=== PATIENT | female | born 1945 | race Caucasian/White ===

== ENCOUNTER 2019-03-19 20:23 | Emergency (ER) | payer MEDICARE ==
[2019-03-19] MEDS ORDERED: 0.9 % SODIUM CHLORIDE 1000ML 1,000 ML IV SCH (20:30)
--- NOTE | 2019-03-19 20:32 | Emergency Department Record ---
History of Present Illness - General Chief Complaint: Abdominal Pain Stated Complaint: BACK/ABD PAIN Time Seen by Provider: 03/19/19 20:24 Source: Patient Mode of Arrival: EMS Limitations: No limitations - History of Present Illness Initial Comments: 73 yo female presents to ED for evaluation of LLQ pain symptoms, fever, and chills that began this evening. Patient denies urinary symptoms, denies change in stools. Patient denies productive cough symptoms, denies rash symptoms, headache, or stiff neck symptoms. Patient denies history of diverticulitis previously, patient denies nausea/vomiting symptoms. MD Complaint: Abdominal pain Onset/Timin -: Hour(s) Location: LLQ Radiation: L flank Severity: Moderate Quality: Aching Consistency: Constant Improves With: Nothing Worsens With: Nothing Associated Symptoms: Chills - Related Data Patient : No Hx Age of Menopause: 39 Previous Rx's Medication Instructions Recorded Cephalexin [Keflex] 500 mg PO QID #28 cap 03/19/19 Allergies Allergy/AdvReac Type Severity Reaction Status Date / Time Penicillins AdvReac SWELLING Verified 03/19/19 20:38 (GENERAL) bee stings Allergy Intermediate extreme Uncoded 09/20/15 14:09 swelling Review of Systems Constitutional: Denies: Chills, Fever, Malaise Eyes: Denies: Eye discharge, Eye pain ENT: Denies: Congestion, Ear pain, Epistaxis Respiratory: Denies: Cough, Dyspnea Cardiovascular: Denies: Chest pain, Dyspnea on exertion Endocrine: Denies: Fatigue, Heat or cold intolerance Gastrointestinal: Reports: Abdominal pain. Denies: Constipation, Nausea, Vomiting Genitourinary: Denies: Incontinence, Retention Musculoskeletal: Denies: Arthralgia, Back pain Skin: Denies: Bruising, Change in color Neurological: Denies: Abnormal gait, Confusion, Headache, Seizure Psychiatric: Denies: Anxiety Hematological/Lymphatic: Denies: Anemia, Blood Clots Past Medical History - SOCIAL HISTORY Smoking Status: Never smoker Alcohol Use: Occasional Drug Use: None - RESPIRATORY Hx Respiratory Disorders: No - CARDIOVASCULAR Hx Cardio Disorders: Yes Comment:: hypercholeteremia - NEURO Hx Neuro Disorders: Yes Comment:: memory, RLS - GI Hx GI Disorders: Yes Hx Reflux: Yes (occasionally) - Hx Genitourinary Disorders: Yes Hx UTI: Yes (many years ago) - ENDOCRINE Hx Endocrine Disorders: No - MUSCULOSKELETAL Hx Musculoskeletal Disorders: No - PSYCH Hx Psych Problems: No - HEMATOLOGY/ONCOLOGY Hx Hematology/Oncology Disorders: No Family Medical History Any Significant Family History?: Yes Hx Diabetes: Father Hx Heart Disease: Mother *Heart Comment: CHF Physical Exam - General General Appearance: Alert, Oriented x3, Cooperative Limitations: No limitations - Head Head exam: Atraumatic, Normocephalic, Normal inspection Head exam detail: negative: Abrasion, Contusion, John's sign, General tenderness, Hematoma, Laceration - Eye Eye exam: Normal appearance. negative: Conjunctival injection, Periorbital swelling, Periorbital tenderness, Scleral icterus - ENT Ear exam: negative: Auricular hematoma, Auricular trauma Nasal Exam: negative: Active bleeding, Discharge, Dried blood, Foreign body Mouth exam: negative: Drooling, Laceration, Muffled voice, Tongue elevation - Neck Neck exam: Normal inspection. negative: Meningismus, Tenderness - Respiratory Respiratory exam: Normal lung sounds bilaterally. negative: Rales, Respiratory distress, Rhonchi, Stridor - Cardiovascular Cardiovascular Exam: Regular rate, Normal rhythm, Normal heart sounds - GI/Abdominal GI/Abdominal exam: Soft, Tenderness (TTP LLQ on exami nation, no rebound/guarding symptoms are present on examination.). negative: Rebound, Rigid - Rectal Rectal exam: Deferred - exam: Deferred - Extremities Extremities exam: Normal inspection. negative: Pedal edema, Tenderness - Back Back exam: Denies: CVA tenderness (R), CVA tenderness (L) - Neurological Neurological exam: Alert, Normal gait, Oriented X3 - Psychiatric Psychiatric exam: Normal affect, Normal mood - Skin Skin exam: Normal color. negative: Abrasion Type of lesion: negative: abrasion Course Vital Signs 03/19/19 20:23 Temperature 98.8 F Pulse Rate [ 88 Pulse Ox Probe] Respiratory 24 Rate Blood Pressure 170/95 [Left Arm] Pulse Ox 98 - Reevaluation(s) Reevaluation #1: 03/19/19 21:01 Laboratory studies were reviewed and appear grossly unremarkable for an acute process except for the following: WBC 10.6 with 81% Neutrophils, 7% Bands Reevaluation #2: 03/19/19 21:28 Patient is back from CT imaging, results are pending at this time. Reevaluation #3: 03/19/19 21:57 CT Abdomen and Pelvis: 4 mm proximal ureteral calculus with mild left hydronephrosis UA was reviewed: 10-15 RBCs 1+ Bacteria Rocephin was ordered to infuse at this time. I spoke with the patient at length regarding transfer for likely infected ureteral calculus (perinephric stranding, Bandemia, rigors on examination), patient reports that she has to go home to care for her 89 yo following spinal surgery. I asked if the patient has anyone that can care for her SO as transfer for urological consultation is indicated based on the patient's UA, clinical examination, and CT findings. Patient reports that there is no-one available to care for her SO. I also asked if her SO could be brought to the ED via ambulance and admitted for care so that the patient can be transferred for urological consultation and admission, patient again declined. Following discussion with the patient regarding transfer for urologic consultation, patient reports that she wants to leave AMA following infusion of antibiotics. Risks of , permanent impairment from sepsis, as well as worsening of her current condition were discussed as well as the benefit of transfer for further evaluation of her presenting symptoms. Patient verbalizes understanding of all risks and benefits discussed, desires to leave AMA despite these risks. Based on my examination, the patient is alert, oriented, and answers all questions appropriately. Patient appears to have the capacity to make rational decisions based on my examination. Naveen alexis was present for the duration of our discussion as well. Patient was encouraged to return to the ED immediately if they change their mind about treatment and want to be re- evaluated. Medical Decision Making - Lab Data Result diagrams: 03/19/19 20:30 03/19/19 20:30 Disposition Disposition: Discharge Clinical Impression: Ureteral calculus, left, Pyelonephritis Disposition: Against Medical Advice Condition: (2) Stable Instructions: Kidney Infection (ED) Additional Instructions: Return to ED if your symptoms worsen or if you have any concerns. Keflex as directed. Follow-up with Dr. Juarez in 1-3 days as directed. Prescriptions: Cephalexin [Keflex] 500 mg PO QID #28 cap Forms: Patient Portal Access Time of Disposition: 22:23 Quality - Quality Measures Quality Measures: N/A - Blood Pressure Screening Does Patient Have Any of the Following: No Blood Pressure Classification: Pre-Hypertensive BP Reading Systolic Measurement: 122 Diastolic Measurement: 68 Screening for High Blood Pressure: < Pre-Hypertensive BP, F/U Documented > [G8950] Pre-Hypertensive Follow-up Interventions: Referral to alternative/primary care provider.
[2019-03-19 20:40] LABS: ABSOLUTE NEUTROPHIL COUNT 9.51; BASO % 0.1 % (0-6); EOS % 1.2 % (0-6); HEMATOCRIT 38.8 % (35.0-47.0); HEMOGLOBIN 12.3 gm/dl (11.6-16.0); LYMPH % 9.1 % (16-45); MEAN CELL VOLUME 96.3 fl (81-97); MEAN CORPUSCULAR HEMOGLOBIN 30.5 pg (27-33); MEAN CORPUSCULAR HGB CONC 31.7 g/dl (32-36); MEAN PLATELET VOLUME 10.4 fl (7.4-10.4); MONO % 0.2 % (0-9); PLATELET COUNT 274 K/uL (130-400); RED BLOOD COUNT 4.03 M/uL (3.80-5.40); RED CELL DISTRIBUTION WIDTH 12.8 % (11.5-14.5); WHITE BLOOD COUNT W/O DIFF 10.6 K/uL (4.2-12.2)
[2019-03-19 20:52] LABS: BLOOD UREA NITROGEN 24 mg/dL (8-23)
[2019-03-19 20:53] LABS: CREATININE 0.7 mg/dL (0.5-0.9); EST GLOMERULAR FILTRATION RATE > 60 mL/min; LIPASE 43 U/L (13-60); TOTAL PROTEIN 5.9 g/dL (6.6-8.7)
[2019-03-19 20:55] LABS: GLUCOSE,RANDOM 100 mg/dL (74-109)
[2019-03-19 20:58] LABS: ALBUMIN 3.9 g/dL (4.0-5.0); ALKALINE PHOSPHATASE 57 U/L (35-104); ALT/SGPT 16 U/L (<33); AST/SGOT 21 U/L (10.0-35.0)
[2019-03-19 21:10] LABS: URINE APPEARANCE SL CLOUDY; URINE BILIRUBIN NEGATIVE (NEGATIVE); URINE BLOOD LARGE (NEGATIVE); URINE COLOR YELLOW; URINE GLUCOSE (UA) NEGATIVE (NEGATIVE); URINE KETONE NEGATIVE (NEGATIVE); URINE LEUKOCYTE ESTERASE TRACE (NEGATIVE); URINE NITRITE NEGATIVE (NEGATIVE); URINE PROTEIN NEGATIVE (NEGATIVE); URINE UROBILINOGEN 0.2 E.U./dL (0.20 - 1.00)
[2019-03-19 21:18] LABS: URINE BACTERIA 1+; URINE EPITHELIAL CELLS 0 - 2 (FEW); URINE WBC 0 - 2 (0-2/hpf); URINE YEAST FEW
--- NOTE | 2019-03-19 21:55 | CT SCAN REPORT ---
EXAMINATION: CT Abdomen and Pelvis with IV Contrast EXAM DATE: 03/19/2019 9:33 PM TECHNIQUE: CT imaging of the abdomen and pelvis was performed with intravenous contrast. Coronal and sagittal images were reconstructed. IV Contrast: The amount and type of contrast are recorded in the medical record. INDICATION: LLQ pain, fever, chills COMPARISON: None ENCOUNTER: Not applicable CT ABDOMEN AND PELVIS FINDINGS: Abdomen: Normal liver, spleen, pancreas, and adrenals. Atherosclerotic calcification of the abdominal aorta and iliac vessels. No aortic aneurysm. Prior cholecystectomy. Normal right kidney. There is perinephric stranding around the left kidney. Suspect there is some mil d renal edema and hydronephrosis. There is a 4 mm calculus in the proximal left ureter on series 2, i mage 93. Probable small lower pole renal cyst. Normal caliber small bowel. Normal appendix. Diverticulosis of the distal colon. No evidence of diver ticulitis. No adenopathy. Pelvis: Normal bladder. Lobular contour in the uterus, could be due to uterine fibroids. No free flui d in the pelvis. Degenerative changes in the left hip. There is a right hip prosthesis. There is spurring and scoliosis in the spine. Scarring or atelectasis in the lung bases. IMPRESSION: 1. Mild left hydronephrosis and perinephric stranding. Proximal left ureteral calculus. Dictated by: Shakeel Reyna MD on 03/19/2019 9:37 PM. .
[2019-03-19] MEDS ORDERED: CEFTRIAXONE 1GM/50ML BAG 1 GM/50 ML BAG IVPB ONE (22:11)
== END 2019-03-19 22:55 | disposition left against medical advice (07) ==
LOC: ER 20:23
DX: N13.6 Pyonephrosis (principal)
CPT/HCPCS: 99285 ×2; 96365; 83605; 83690; 80053; 81001; 85027; 74177; Q9967; J0696; J7030